=== PATIENT | female | born 1935 | race Caucasian/White ===

== ENCOUNTER → 2017-08-14 | Outpatient (CLI) | payer OTHER ==
[~2017-08-14] MED LIST: AMBIEN5 MG PO; COUMADIN3 MG PO; FUROSEMIDE20 MG PO; GABAPENTIN400 MG PO; PROCHLORPERAZIN10 MG PO; TYLENOL WITH C1 EACH PO; ULTRAM 50MG50 MG PO; WARFARIN SODIUM2 MG PO; ZESTRIL10 MG PO
[2017-08-14 18:57] LABS: PROTHROMBIN TIME 13.7 seconds (11.9-14.5)
== END ==
LOC: NPA 11:30
PROVIDERS: ATTEND Internal Medicine
DX: Z02.89 Encounter for other administrative examinations (principal)
CPT/HCPCS: 36415; 85610

== ENCOUNTER → 2017-08-18 | Outpatient (CLI) | payer OTHER ==
[2017-08-18 15:49] LABS: INR 1.15; PROTHROMBIN TIME 15.3 seconds (11.9-14.5)
== END ==
LOC: NPA 10:00
PROVIDERS: ATTEND Internal Medicine
DX: Z02.89 Encounter for other administrative examinations (principal)
CPT/HCPCS: 36415; 85610

== ENCOUNTER → 2017-08-20 | Outpatient (CLI) | payer OTHER | LOC: NPA 12:00 | PROVIDERS: ATTEND Internal Medicine | DX: Z02.89 Encounter for other administrative examinations (principal) | CPT/HCPCS: 36415 ==

== ENCOUNTER → 2017-08-25 | Outpatient (CLI) | payer OTHER ==
[2017-08-25 15:53] LABS: INR 1.11; PROTHROMBIN TIME 14.9 seconds (11.9-14.5)
== END ==
LOC: NPA 11:30
PROVIDERS: ATTEND Internal Medicine
DX: Z02.9 Encounter for administrative examinations, unspecified (principal)
CPT/HCPCS: 36415; 85610

== ENCOUNTER → 2017-08-31 | Outpatient (CLI) | payer OTHER ==
[2017-08-31 17:45] LABS: INR 1.45; PROTHROMBIN TIME 18.4 seconds (11.9-14.5)
== END ==
LOC: NPA 11:30
PROVIDERS: ATTEND Internal Medicine
DX: Z02.89 Encounter for other administrative examinations (principal)
CPT/HCPCS: 36415; 85610

== ENCOUNTER 2020-06-19 16:26 | Emergency (ER) | payer MEDICARE ==
[~2020-06-19] VITALS: Ht 172.7 cm; Wt 71.7 kg
[2020-06-19 17:07] LABS: BASOPHILS % 0.3 % (0.0-1.0); EOSINOPHILS # (AUTO) 0.1 (0.0-0.4); EOSINOPHILS % 1.2 % (0.0-6.0); HEMATOCRIT 41.4 % (34.2-44.1); HEMOGLOBIN 13.5 g/dL (12.0-16.0); LYMPHOCYTES # (AUTO) 1.7 (1.0-3.2); LYMPHOCYTES % 18.6 % (18.0-39.1); MEAN CORPUSCULAR HEMOGLOBIN 29.5 pg (28-32); MEAN CORPUSCULAR HGB CONC 32.6 g/dL (31-35); MEAN CORPUSCULAR VOLUME 90.4 fL (81-99); MONOCYTES # (AUTO) 0.6 (0.2-0.8); MONOCYTES % 6.8 % (4.4-11.3); NEUTROPHILS # (AUTO) 6.6 (2.1-6.9); NEUTROPHILS % 72.7 % (38.7-80.0); PLATELET COUNT 255 x10e3/uL (140-360); RED BLOOD COUNT 4.58 x10e6/uL (3.6-5.1); RED CELL DISTRIBUTION WIDTH 14.1 % (11.7-14.4)
[2020-06-19 17:19] LABS: PARTIAL THROMBOPLASTIN TIME 71.3 seconds (23.8-35.5)
[2020-06-19 17:21] LABS: INR 10.66; PROTHROMBIN TIME 88.3 seconds (11.9-14.5)
[2020-06-19 17:27] LABS: ALANINE AMINOTRANSFERASE 20 IU/L (0-55); ALBUMIN 3.4 g/dL (3.5-5.0); ALBUMIN/GLOBULIN RATIO 0.8 (0.8-2.0); ALKALINE PHOSPHATASE 107 IU/L (40-150); ANION GAP 15.3 mmol/L (8-16); BLOOD UREA NITROGEN 20 mg/dL (7-26); BUN/CREATININE RATIO 24 (6-25); CALCIUM 8.3 mg/dL (8.4-10.2); CARBON DIOXIDE 31 mmol/L (22-29); CHLORIDE 98 mmol/L (98-107); CREATINE KINASE 38 IU/L (29-168); CREATININE, SERUM 0.83 mg/dL (0.57-1.11); EST GLOMERULAR FILTRATION RATE > 60 ML/MIN (60-); GLUCOSE 110 mg/dL (74-118); POTASSIUM 3.3 mmol/L (3.5-5.1); SODIUM 141 mmol/L (136-145)
--- OUTSIDE RECORDS SUMMARY | 2020-06-19 17:49 | XMS REPORT | Continuity of Care Document ---
Author Author [facility] t Organization [facility] Address [address] [place] [address] Phone Unavailable Care Team Providers Care Optimization Engineer Name Role Phone Unavailable Unavailable Payers Payer Name Policy Type Policy Number Effective Date Expiration Date S ource Problems This patient has no known problems. Allergies, Adverse Reactions, Alerts Allergy Name Allergy Type Status Severity Reaction(s) Onset Date Inacti ve Date Treating Clinician Comments Source Penicillins DA Active MO 2020-06-05 00:00:00 [facility] Penicillins DA Active MO 2012-09-20 00:00:00 [facility] Medications This patient has no known medications. Procedures This patient has no known procedures. Results Test Description Test Time Test Comments Results Result Comments Source PROTHROMBIN TIME 2020-06-05 18:53:00 Test Item PROTHROMBIN TIME PATIENT (test code = PTP) 31.1 seconds 9.0-14.0 H INTERNATIONAL NORMAL RATIO (test code = INR) 2.7 0.8-1.2 H The therapeutic range for oral anticoagulant therapy formost indications is an international normalized ratio (INR)of between 2.0 and 3.0. The recommended therapeutic INRrange for various clinical situations is listed below: Clinical Situation INR range Pulmonary e mbolism treatment (2.0-3.0)Venous thrombosis treatmentVenous thrombosis prophylaxis (high risk surgery)Prevention of systemic embolism from: Acute myocardial infarction Valvular heart disease Atrial fibrillation Mechanical prosthetic heart valves (2.5-3.5) IS PATIENT ON ANTICOAGULANTS? NTHROMBOPLASTIN TIME [id number] 18:53:00* Test Item Value Reference Range Interpretation Comments THROMBOPLASTIN TIME PARTIAL (test code = PTT) 47.4 seconds 23.0-37. 0 H IS PATIENT ON ANTICOAGULANTS? NB-TYPE NATRIURETIC [id number] 16:40:00* Test Item Value Reference Range Interpretation Comments B-TYPE NATRIURETIC PEPTIDE (test code = BNP) 72.85 pgram/mL 0-100 N BASIC METABOLIC [id number] 16:17:00* Test Item Value Reference Range Interpretation Comments SODIUM (test code = NA) 142 mmol/L 136-145 N POTASSIUM (test code = K) 3.3 mmol/L 3.5-5.1 L CHLORIDE (test code = CL) 105.0 mmol/L 98-107 N CARBON DIOXIDE (test code = CO2) 29.0 mmol/L 21-32 N ANION GAP (test code = GAP) 11.3 10-20 N GLUCOSE (test code = GLU) 126 mg/dL 74-106 H BLOOD UREA NITROGEN (test code = BUN) 15 mg/dL 7-18 N GLOMERULAR FILTRATION RATE (test code = GFR) 47 mL/min >=60 Estimated GFR by using Modified MDRD formula.Chronic kidney disease is defined as either kidney damageor GFR <60 mL/min/1.73 m2 for >3 months. CREATININE (test code = CREAT) 1.10 mg/dL 0.55-1.02 H Note change in reference range due to change in reagent. BUN/CREATININE RATIO (test code = BUN/CREA) 13.6 10-20 N CALCIUM (test code = CA) 8.7 mg/dL 8.5-10.1 N [id number] 16:17:00* Test Item Value Reference Range Interpretation Comments TROPONIN-I (test code = TROPI) <0.015 ng/mL 0-0.045 N BASIC METABOLIC [id number] 16:09:00* Test Item Value Reference Range Interpretation Comments SODIUM (test code = NA) 142 mmol/L 136-145 N POTASSIUM (test code = K) 3.3 mmol/L 3.5-5.1 L CHLORIDE (test code = CL) 105.0 mmol/L 98-107 N CARBON DIOXIDE (test code = CO2) mmol/L 21-32 ANION GAP (test code = GAP) 10-20 GLUCOSE (test code = GLU) mg/dL 74-106 BLOOD UREA NITROGEN (test code = BUN) mg/dL 7-18 GLOMERULAR FILTRATION RATE (test code = GFR) mL/min >=60 CREATININE (test code = CREAT) mg/dL 0.55-1.02 BUN/CREATININE RATIO (test code = BUN/CREA) 10-20 CALCIUM (test code = CA) mg/dL 8.5-10.1 [id number] 16:09:00* Test Item Value Reference Range Interpretation Comments TROPONIN-I (test code = TROPI) ng/mL 0-0.045 - CT C-SPINE W/O [id number] 16:01:00 [facility] 1935 Sex: F Name: THANG KAPLAN [facility] : 1935 Age/S: 85 / F [address] [facility] Unit #: [id number] Loc: [place] [address] Phys: Latrell Flores DO Acct: [id number] Dis Date: Status: REG ER PHONE #: [phone] Exam Date: 06/05/2020 [facility] FAX #: [phone] Reason: FALL EXAMS: CPT CODE: [id number] CT C-SPINE W/O CONTRAST [id number] REASON FOR EXAM: FALL EXAM ORDER DATE: 06/05/2020 2:51 PM Ordering: Latrell Flores DO Attending:Latrell Flores DO [facility] C-SPINE W/O CONTRAST FINDINGS: CT images of the ce rvical spine were obtained without IV contrast at 2.5mm. Reconstructed cor onal and sagittal images were also provided. Dose modulation, iterative r econstruction, and/or weight based adjustment of the MA/KV was utilized to reduce the radiation dose to as low as reasonably achievable. The osseous structures are intact. Mild sclerosis of the facet joints at multiple level The central canal is patent. The disc spaces are maintained. IMPRESSION: Degenerative changes of the facet joints at multiple level. No acute osseous abnormality at 1601 Reported and signed by: Edwin Woods M.D. CC: Yvan Hernandez; Latrell Casillas DO Technologist:Yessica WALTER(R); [employer] Chance CTDI: DLP: Trnscb Date/Time: 06/05/2020 (1601) tSHRUTHI Orig Print D/T: S: 06/05/2020 () PAGE 1 Signed Report - CT HEAD/BRAIN W/O CONT 2020-06-05 15:59:00 [facility]Name: JOSE MANUEL KAPLAN : 1935 Sex: F Name: THANG KAPLAN [facility] : 1935 Age/S: 85 / F [address] Unit #: [id number] Loc: [place], [place] [address] Phys: Latrell Flores DO Acct: [id number] Dis Date: Status: REG ER PHONE #: [phone] Exam Date: 06/05/2020 1558 FAX #: [phone] Reason: FALL EXAMS: CPT CODE: [id number] CT HEAD/BRAIN W/O CONT [id number] REASON FOR EXAM: FALL EXAM ORDER DATE: 06/05/2020 2:51 PM Ordering: Latrell Flores DO Attending:Latrell Flores DO Location:[facility] PROCEDURE: - CT HEAD/BRAIN W/O CONT COMPARISON: 09/17/2012 FI NDINGS: CT images of the brain were obtained without IV contrast. Dose mo dulation, iterative reconstruction, and/or weight based adjustment of the MA/KV was utilized to reduce the radiation dose to as low as reasonably ac hievable. Mild patchy low densities appearance of the paraventric ular region noted consistent with nonspecific white matter disease. The gr ay-white matter delineation is unremarkable. The ventricles, cisterns, and sulci are minimally prominent. There is no evidence of hemorrhage, mass, mass effect. There is no evidence of acute infarct. The calvarium i s intact. 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 No acute findings at 1559 Reported and signed by: Edwin lafleur M.D. CC: Yvan Hernandez Ernesto M DO Ashley hnologist:Yessica WALTER(R); [employer] Chance CTDI: DLP: Trnscb Date/T jennifer: 06/05/2020 (2920) tSHRUTHI Orig Print D/T: S: 06/05 (4488) PAGE 1 Signed Report CBC W/O [id number] 15:46:00* Test Item Value Reference Range Interpretation Comments WHITE BLOOD CELL (test code = WBC) 5.3 K/mm3 4.5-12.5 N RED BLOOD CELL (test code = RBC) 4.41 mill/mm3 3.7-5.2 N HEMOGLOBIN (test code = HGB) 13.6 gram/dL 11.5-15.5 N HEMATOCRIT (test code = HCT) 41.4 % 36.0-46.0 N MEAN CELL VOLUME (test code = MCV) 93.9 fL 80-98 N MEAN CELL HGB (test code = MCH) 30.8 picogram 27.0-33.0 N MEAN CELL HGB CONCETRATION (test code = MCHC) 32.9 gram/dL 33.0-36. 0 L RED CELL DISTRIBUTION WIDTH (test code = RDW) 14.4 % 11.6-16. 2 N PLATELET COUNT (test code = PLT) 113 K/mm3 150-450 L MEAN PLATELET VOLUME (test code = MPV) 12.9 fL 6.7-11.0 H
--- NOTE | 2020-06-19 18:02 | Diagnostic Imaging Report ---
Examination: CT of the brain without contrast History: 85-year-old female with fall, unsteady gait, weakness Comparison studies: Report of MRI brain from 12/23/2016, prior images are not available for comparison at the time of interpretation. Technique: Axial images were obtained from the skull base to the vertex. Coronal and sagittal reconstructions obtained from the axial data. Dose modulation, iterative reconstruction, and/or weight based adjustment of the mA/kV was utilized to reduce the radiation dose to as low as reasonably achievable. Intravenous contrast: None Findings: Scalp/skull: No abnormalities. No fractures, blastic or lytic lesions. Extra-axial spaces: No masses. No fluid collections. Atherosclerotic calcifications in the basilar artery as well as cavernous carotid and vertebral arteries bilaterally. Brain sulci: Mildly prominent. Ventricles: Mild compensatory dilatation. Incidental bilateral atrial choroid plexus xanthogranulomas are moderate in size. No hydrocephalus. Parenchyma: Patchy hypodensities in the supratentorial white matter are small vessel ischemic changes. Prominent perivascular spaces or chronic appearing bilateral basal ganglia lacunar infarcts are present, specifically in the right inferior putamen, genu of the internal capsules bilaterally, and left yip radiata. Otherwise no abnormal densities. No masses, hemorrhage, or acute cortical vascular insults. Sellar/suprasellar region: Partial empty sella is present. No suprasellar mass. Craniocervical junction: Patent foramen magnum. No Chiari one malformation. IMPRESSION: 1. No acute intracranial abnormalities. 2. Moderate chronic supratentorial microvascular ischemic changes. Chronic appearing bilateral basal ganglia prominent perivascular spaces or lacunar infarcts. 3. Mild generalized parenchymal volume loss. A preliminary report was provided by Dr. Quesada on 06/19/2020 at 6:02 PM. I have reviewed the images and agree with findings in the preliminary report. Signed by: Dr. Socorro Calvo M.D. on 06/19/2020 8:05 PM
[2020-06-19] MEDS ORDERED: ATORVASTATIN CA20 MG PO (18:03)
[2020-06-19] MEDS ORDERED: ALPRAZOLAM0.5 MG PO (18:03)
[2020-06-19] MEDS ORDERED: LISINOPRIL5 MG PO (18:03)
[2020-06-19] MEDS ORDERED: WARFARIN SODIUM3 MG PO (18:03)
[2020-06-19] MEDS ORDERED: GABAPENTIN300 MG PO (18:03)
[2020-06-19 18:04] LABS: CLARITY,URINE SL CLOUDY (CLEAR); COLOR,URINE STRAW (YELLOW); LEUKOCYTE ESTERASE ,URINE NEGATIVE (NEGATIVE); NITRITE,URINE NEGATIVE (NEGATIVE); PROTEIN,URINE DIPSTICK NEGATIVE (NEGATIVE)
[2020-06-19 18:05] LABS: BILIRUBIN,URINE NEGATIVE (NEGATIVE); KETONES,URINE NEGATIVE (NEGATIVE); URINE UROBILINOGEN 0.2 mg/dL (0.2 - 1)
[2020-06-19 18:08] LABS: AMPHETAMINES SCREEN,URINE NEGATIVE (NEGATIVE); BENZODIAZEPINES SCREEN,URINE POSITIVE (NEGATIVE); PHENCYCLIDINE SCREEN,URINE NEGATIVE (NEGATIVE)
[2020-06-19 18:17] LABS: BACTERIA,URINE FEW /HPF
[2020-06-19 18:18] LABS: AMORPHOUS SEDIMENT,URINE FEW (FEW); EPITHELIAL CELLS,URINE FEW /LPF; RENAL EPITHELIAL CELLS,URINE RARE
--- NOTE | 2020-06-19 18:33 | Diagnostic Imaging Report ---
EXAMINATION: CHEST SINGLE (PORTABLE) INDICATION: Weakness COMPARISON: None FINDINGS: AP view TUBES and LINES: None. . LUNGS/PLEURA: Lungs are well inflated. There are bilateral patchy peripheral opacities could represent multifocal/viral pneumonia. Other considerations include pulmonary edema.. There is no pleural effusion or pneumothorax. HEART AND MEDIASTINUM: The cardiomediastinal silhouette is unremarkable. BONES AND SOFT TISSUES: No acute osseous lesion. Soft tissues are unremarkable. UPPER ABDOMEN: No free air under the diaphragm. IMPRESSION: Bilateral patchy peripheral opacities could represent multifocal/viral pneumonia. Other considerations include pulmonary edema. Signed by: Jose M Henley MD on 06/19/2020 6:30 PM
[2020-06-19] MEDS ORDERED: AZITHROMYCIN 500MG/NS 250 ML 250 ML IV ONE (19:15)
[2020-06-19] MEDS ORDERED: CEFTRIAXONE SOD 1 GM/NS 50 ML 50 ML IV ONE (19:15)
--- NOTE | 2020-06-19 19:19 | NUR ---
Bedside shift report and care hand off given to WAQAR Wagner.
--- NOTE | 2020-06-19 19:20 | Emergency Department Note ---
History of Present Illnes History of Present Illness Chief Complaint: General Medicine Complaints History of Present Illness This is a 85 year old female Patient in from home via EMS with reports of changes in mental status and function since a fall that happened a week ago. Per EMS, the patient was taken to [place] after that fall, was assessed in the ER and discharged home. The patient's daughter believes that the patient has not been the same since the fall. Per EMS report, the patient was noted to have some blood around her mouth and the patient states that she has been coughing up blood for the past couple of days. No obvious source of the bleeding is identified upon brief visual inspection of the inside of her mouth. Patient complaints of pain in her head and her buttock but the pain in her buttock is fr om a fall that happened many years ago and is not new. Patient appears tired. 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 Any updates have been documented here. (DYLAN VILCHIS MD) Past Medical History Recent Fever: No Clinical Suspicion of Infectio: No New/Unexplained Change in Ment: Yes Past Medical History: Hypertension, Hyperlipedemia, DVT/PE Other Medical History: LEFT LEG BLOOD CLOT PREVIOUS FALLS Other Surgery: RIGHT HIP REPLACEMENT LEFT KNEE REPLACEMENT LEFT LEG FILTER (DYLAN VILCHIS MD) Social History Smoking Cessation: Never Smoker Counseling Performed: No Alcohol Use: None Any Illegal Drug Use: No TB Exposure/Symptoms: No Physically hurt or threatened: No (DYLAN VILCHIS MD) Family History Family history of heart diseas: No (DYLAN VILCHIS MD) Other Last Tetanus: UNKNOWN Any Pre-Existing Lines (PICC,: No (DYLAN VILCHIS MD) Review of Systems Review of Systems Constitutional: Reports no symptoms EENTM: Reports no symptoms Cardiovascular: Reports no symptoms Respiratory: Reports no symptoms Gastrointestinal: Reports no symptoms Genitourinary: Reports no symptoms Musculoskeletal: Reports back pain (CHRONIC LOW BACK/BUTTOCKS) Integumentary: Reports no symptoms Neurological: Reports headache, Reports other (AMS) Psychological: Reports no symptoms Endocrine: Reports no symptoms Hematological/Lymphatic: Reports no symptoms (DYLAN VILCHIS MD) Physical Exam Related Data Allergies: Coded Allergies: penicillin (Verified Allergy, Unknown, PASSED OUT, 12/21/16) Triage Vital Signs Vital Signs Date Time Temp Pulse Resp B/P (MAP) Pulse Ox O2 Delivery O2 Flow Rate FiO2 06/19/20 16:29 98.4 71 16 117/79 98 Room Air Vital signs reviewed: Yes (DYLAN VILCHIS MD) Physical Exam CONSTITUTIONAL Constitutional: Present well-developed, Present well-nourished HENT HENT: Present normocephalic, Present atraumatic, Present oropharynx clear/moist, Present nose normal, Present other (ECCHYMOSIS AND HEMATOMA WITH TTP LEFT FOREHEAD) HENT L/R: Present left ext ear normal, Present right ext ear normal EYES Eyes: Reports PERRL, Reports conjunctivae normal NECK Neck: Present ROM normal PULMONARY Pulmonary: Present effort normal, Present breath sounds normal CARDIOVASCULAR Cardiovascular: Present regular rhythm (FREQUENT ECTOPY), Present heart sounds normal, Present capillary refill normal, Present normal rate GASTROINTESTINAL Abdominal: Present soft, Present nontender, Present bowel sounds normal GENITOURINARY Genitourinary: Present exam deferred SKIN Skin: Present warm, Present dry MUSCULOSKELETAL Musculoskeletal: Present ROM normal, Present other (PELVIS STABLE) NEUROLOGICAL Neurological: Present alert, Present oriented x 3, Present no gross motor or sensory deficits PSYCHOLOGICAL Psychological: Present mood/affect normal, Present judgement normal ([facility] Burgess MD) Results Laboratory Result Diagram: 06/19/20 1647 06/19/20 1647 Laboratory Laboratory Tests Test 06/19/20 17:48 06/19/20 16:47 Urine Color Straw (YELLOW) Urine Clarity Sl cloudy (CLEAR) Urine pH 6.5 (5 - 7) Urine Specific Protection 1.020 (1.010-1.025) Urine Protein Negative (NEGATIVE) Urine Glucose (UA) Negative (NEGATIVE) Urine Ketones Negative (NEGATIVE) Urine Blood Negative (NEGATIVE) Urine Nitrite Negative (NEGATIVE) Urine Bilirubin Negative (NEGATIVE) Urine Urobilinogen 0.2 mg/dL (0.2 - 1) Urine Leukocyte Esterase Negative (NEGATIVE) Urine RBC None /HPF (0-5) Urine WBC None /HPF (0-5) Urine Epithelial Cells Few /LPF (NONE) Urine Renal Epithelial Cells Rare (NONE) Urine Amorphous Sediment Few (FEW) Urine Bacteria Few /HPF (NONE) Urine Opiates Screen Negative (NEGATIVE) Urine Methadone Screen Negative (NEGATIVE) Urine Barbiturates Screen Negative (NEGATIVE) Urine Phencyclidine Screen Negative (NEGATIVE) Urine Amphetamines Screen Negative (NEGATIVE) Urine Methamphetamines Screen Negative (NEGATIVE) Urine Benzodiazepines Screen Positive (NEGATIVE) Urine Cocaine Screen Negative (NEGATIVE) Urine Cannabinoids Screen Negative (NEGATIVE) White Blood Count 9.03 x10e3/uL (4.8-10.8) Red Blood Count 4.58 x10e6/uL (3.6-5.1) Hemoglobin 13.5 g/dL (12.0-16.0) Hematocrit 41.4 % (34.2-44.1) Mean Corpuscular Volume 90.4 fL (81-99) Mean Corpuscular Hemoglobin 29.5 pg (28-32) Mean Corpuscular Hemoglobin Concent 32.6 g/dL (31-35) Red Cell Distribution Width 14.1 % (11.7-14.4) Platelet Count 255 x10e3/uL (140-360) Neutrophils (%) (Auto) 72.7 % (38.7-80.0) Lymphocytes (%) (Auto) 18.6 % (18.0-39.1) Monocytes (%) (Auto) 6.8 % (4.4-11.3) Eosinophils (%) (Auto) 1.2 % (0.0-6.0) Basophils (%) (Auto) 0.3 % (0.0-1.0) Neutrophils # (Auto) 6.6 (2.1-6.9) Lymphocytes # (Auto) 1.7 (1.0-3.2) Monocytes # (Auto) 0.6 (0.2-0.8) Eosinophils # (Auto) 0.1 (0.0-0.4) Basophils # (Auto) 0.0 (0.0-0.1) Absolute Immature Granulocyte (auto 0.04 x10e3/uL (0-0.1) Prothrombin Time 88.3 seconds (11.9-14.5) Prothromb Time International Ratio 10.66 Activated Partial Thromboplast Time 71.3 seconds (23.8-35.5) Sodium Level 141 mmol/L (136-145) Potassium Level 3.3 mmol/L (3.5-5.1) Chloride Level 98 mmol/L (98-107) Carbon Dioxide Level 31 mmol/L (22-29) Anion Gap 15.3 mmol/L (8-16) Blood Urea Nitrogen 20 mg/dL (7-26) Creatinine 0.83 mg/dL (0.57-1.11) Estimat Glomerular Filtration Rate > 60 ML/MIN (60-) BUN/Creatinine Ratio 24 (6-25) Glucose Level 110 mg/dL (74-118) Calcium Level 8.3 mg/dL (8.4-10.2) Total Bilirubin 1.5 mg/dL (0.2-1.2) Aspartate Amino Transf (AST/SGOT) 31 IU/L (5-34) Alanine Aminotransferase (ALT/SGPT) 20 IU/L (0-55) Alkaline Phosphatase 107 IU/L (40-150) Creatine Kinase 38 IU/L (29-168) Creatine Kinase MB 1.20 ng/mL (0-5.0) Troponin I 0.016 ng/mL (0-0.300) B-Type Natriuretic Peptide 58.3 pg/mL (0-100) Total Protein 7.5 g/dL (6.5-8.1) Albumin 3.4 g/dL (3.5-5.0) Globulin 4.1 g/dL (2.3-3.5) Albumin/Globulin Ratio 0.8 (0.8-2.0) Lab results reviewed: Yes (DYLAN VILCHIS MD) Imaging Imaging results reviewed: Yes Impressions Examination: CT of the brain without contrast History: 85-year-old female with fall, unsteady gait, weakness Comparison studies: None Technique: Axial images were obtained from the skull base to the vertex. Coronal and sagittal reconstructions obtained from the axial data. Dose modulation, iterative reconstruction, and/or weight based adjustment of the mA/kV was utilized to reduce the radiation dose to as low as reasonably achievable. Intravenous contrast: None Findings: Scalp/skull: No abnormalities. No fractures, blastic or lytic lesions. Extra-axial spaces: No masses. No fluid collections. Atherosclerotic calcifications in the basilar artery as well as cavernous carotid and vertebral arteries bilaterally. Brain sulci: Mildly prominent. Ventricles: Mild compensatory dilatation. Incidental bilateral atrial choroid plexus xanthogranulomas are moderate in size. No hydrocephalus. Parenchyma: Patchy hypodensities in the supratentorial white matter are small vessel ischemic changes. Prominent perivascular spaces or chronic appearing bilateral basal ganglia lacunar infarcts are present, specifically in the right inferior putamen, genu of the internal capsules bilaterally, and left yip radiata. Otherwise no abnormal densities. No masses, hemorrhage, or acute cortical vascular insults. Sellar/suprasellar region: Partial empty sella is present. No suprasellar mass. Craniocervical junction: Patent foramen magnum. No Chiari one malformation. IMPRESSION: 1. No acute intracranial abnormalities. 2. Moderate chronic supratentorial microvascular ischemic changes. Chronic appearing bilateral basal ganglia prominent perivascular spaces or lacunar infarcts. 3. Mild generalized parenchymal volume loss. A preliminary report was provided by Dr. Quesada on 06/19/2020 at 6:02 PM. EXAMINATION: CHEST SINGLE (PORTABLE) INDICATION: Weakness COMPARISON: None FINDINGS: AP view TUBES and LINES: None. . LUNGS/PLEURA: Lungs are well inflated. There are bilateral patchy peripheral opacities could represent multifocal/viral pneumonia. Other considerations include pulmonary edema.. There is no pleural effusion or pneumothorax. HEART AND MEDIASTINUM: The cardiomediastinal silhouette is unremarkable. BONES AND SOFT TISSUES: No acute osseous lesion. Soft tissues are unremarkable. UPPER ABDOMEN: No free air under the diaphragm. IMPRESSION: Bilateral patchy peripheral opacities could represent multifocal/viral pneumonia. Other considerations include pulmonary edema. Signed by: Jose M Henley MD on 06/19/2020 6:30 PM (DYLAN VILCHIS MD) Procedures 12 Lead ECG Interpretation ECG Interpretation : ECG: ECG 1 Underwater Welder: Interpreted by ED physician Date: Jun 19, 2020 Time: 16:46 Rhythm: sinus rhythm Ectopy: infrequent PVC's (AND PAC'S) Rate: normal BPM: 74 QRS axis: left Conduction: LAFB Other findings: LVH Clinical Impression: abnormal ECG Additional Comments POOR RWP (DYLAN VILCHIS MD) Assessment & Plan Medical Decision Making [facility] AMS, FALL ON COUMADIN - CBC, CHEM, PT/PTT, CT BRAIN/C-SPINE, UA/CX, CXR - EVAL FOR CEREBRAL BLEED, CERV SP FX, ANEMIA, RENAL INSUFF, UTI (DYLAN VILCHIS MD) [facility] [address] victoria at [facility] and he accepts pt for transfer (LILA JONES MD) Reassessment Reassessment I SPOKE WITH PT'S DAUGHTER - PT HAS HAD COUGH SINCE FALL AND ALSO HAS HAD DECR ORAL INTAKE DUE TO LOSS OF TASTE - CXR WITH BILAT PATCHY OPACITIES - WILL GET RAPID COVID SWAB, GIVE ROCEPHIN/AZITHRO. I SPOKE WITH DR HATCH (PCP) - WILL ADMIT HERE IF COVID NEG, WILL NEED XFER SINCE NO COVID BEDS AVAIL HERE - REPORT TO DR JONES TO F/U AND FINAL DISPO. I ORDERED TRANSFUSION OF [facility] FOR COAGULOPATHY (DYLAN VILCHIS MD) Assessment & Plan Final Impression: (1) Warfarin-induced coagulopathy (2) Fall (3) Altered mental status (4) Pneumonia (5) Suspected 2019 novel coronavirus infection (DYLAN VILCHIS MD) Depart Disposition: TRANS TO OTHER [facility] Last Vital Signs Date Time Temp Pulse Resp B/P (MAP) Pulse Ox O2 Delivery O2 Flow Rate FiO2 06/19/20 18:16 62 18 132/73 99 Room Air 06/19/20 16:29 98.4 (DYLAN VILCHIS MD) Home Meds Reported Medications Warfarin Sodium (WARFARIN SODIUM) 3 Mg Tablet, 3 MG PO UD Take one tablet every other day 06/19/20 Alprazolam (ALPRAZOLAM) 0.5 Mg Tablet, 0.5 MG PO DAILY 06/19/20 Atorvastatin Calcium (ATORVASTATIN CALCIUM) 20 Mg Tablet, 20 MG PO DAILY 06/19/20 Gabapentin (GABAPENTIN) 300 Mg Capsule, 300 MG PO QID 06/19/20 Lisinopril (LISINOPRIL) 5 Mg Tablet, 5 MG PO BID 06/19/20 Tramadol Hcl* (ULTRAM 50MG*) 50 Mg Tab, 50 MG PO TID PRN for Mild Pain (1-3) or Fever>100.8 04/19/13 Discontinued Reported Medications Gabapentin (GABAPENTIN) 400 Mg Capsule, 400 MG PO TID, #30 CAP 12/21/16 Acetaminophen With Codeine (TYLENOL WITH CODEINE #3 TABLET) 1 Each Tablet, 300 MG PO Q4HR PRN for PAIN, TAB 12/21/16 Lisinopril* (ZESTRIL*) 10 Mg Tablet, 10 MG PO HS 04/19/13 DYLAN VILCHIS MD Jun 19, 2020 19:20 LILA JONES MD Jun 19, 2020 21:59
--- NOTE | 2020-06-19 20:42 | NUR ---
TRANSFER INITIATED TO [facility]; SPOKE TO JUWAN HOFFMANN RN AT TRANSFER CENTER
[2020-06-19] MEDS ORDERED: SODIUM CHLORIDE 0.9% 250ML 250 ML ONE (20:45)
[2020-06-19] MEDS ORDERED: SODIUM CHLORIDE 0.9% 100 ML ONE (21:28)
--- NOTE | 2020-06-20 00:10 | NUR ---
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 DAUGHTER WAS ALSO GIVEN PHONE NUMBER AT THIS TIME.
[2020-06-20 00:21] VITALS: BP 155/66
== END 2020-06-20 00:25 | disposition other institution (70) ==
LOC: ER 16:46
DX: U07.1 COVID-19 (principal); J18.9 Pneumonia, unspecified organism; D68.32 Hemorrhagic disorder due to extrinsic circulating anticoagulants; T45.515A Adverse effect of anticoagulants, initial encounter; R41.82 Altered mental status, unspecified; R94.31 Abnormal electrocardiogram [ECG] [EKG]; I10 Essential (primary) hypertension; E78.5 Hyperlipidemia, unspecified; Z86.718 Personal history of other venous thrombosis and embolism
CPT/HCPCS: 36415; 70450; 71045; 80053; 80307; 81001; 82550; 82553; 83880; 84484; 85025; 85610; 85730; 86850; 86900; 87040; 93005; 99285; J0456; J0696; J7050 ×2; P9017; U0002

== ENCOUNTER 2025-02-11 19:21 | Inpatient (IN) | payer MEDICARE ==
[~2025-02-11] VITALS: Ht 172.7 cm; Wt 71.7 kg
[~2025-02-11 19:21] MED LIST changes: +ALPRAZOLAM0.5 MG PO; +ATORVASTATIN CA20 MG PO; +GABAPENTIN300 MG PO; +LISINOPRIL5 MG PO; +WARFARIN SODIUM3 MG PO
[2025-02-11 19:30] VITALS: TEMP 98.9
[2025-02-11 22:36] LABS: BASOPHILS % 0.5 % (0.0-1.0); EOSINOPHILS % 1.4 % (0.0-6.0); LYMPHOCYTES % 11.5 % (18.0-39.1); MONOCYTES % 5.1 % (4.4-11.3); NEUTROPHILS % 81.0 % (38.7-80.0); RED CELL DISTRIBUTION WIDTH 14.6 % (11.7-14.4)
[2025-02-11 22:42] LABS: INR 1.53
[2025-02-11 22:51] LABS: EST GLOMERULAR FILTRATION RATE 82.0 ML/MIN (>=60)
[2025-02-11 23:06] VITALS: PULSE 85; RESP 16; O2SAT 98
[2025-02-11 23:30] VITALS: RESP 23
[2025-02-12] VITALS (13 sets, daily range): BP systolic 102–127; BP diastolic 59–88; PULSE 78–113; RESP 16–22; TEMP 97.3–98.2; O2SAT 94–100
[2025-02-12] MEDS: HEPARIN SOD/DEXTROSE 5% 25000 UNIT/250 ML BAG IV SCH (00:01)
[2025-02-12] MEDS: Doxycycline IV 100 MG in SODIUM CHLORIDE 0.9% 100 ML IV STA (01:19)
[2025-02-12 05:53] LABS: BASOPHILS % 0.5 % (0.0-1.0); EOSINOPHILS % 4.5 % (0.0-6.0); LYMPHOCYTES % 18.7 % (18.0-39.1); MONOCYTES % 8.4 % (4.4-11.3); NEUTROPHILS % 67.6 % (38.7-80.0); RED CELL DISTRIBUTION WIDTH 14.8 % (11.7-14.4)
[2025-02-12] MEDS ORDERED: HEPARIN SOD/DEXTROSE 5% 25000 UNIT/250 ML BAG IV SCH (09:00)
[2025-02-12] MEDS: HEPARIN 25,000 UNIT/D5W 250ML 250 ML IV SCH ×2 (12:18→17:20)
[2025-02-12] MEDS: LISINOPRIL 2.5 MG TAB PO SCH (17:12)
[2025-02-12] MEDS: GABAPENTIN 300 MG CAP PO SCH (17:12)
[2025-02-12] MEDS ORDERED: IOPAMIDOL 370 MG/ML 100 ML INFUS..BTL INJ ONE (17:21)
[2025-02-12] MEDS ORDERED: SODIUM CHLORIDE 0.9% 100 ML ONE (17:21)
[2025-02-12] MEDS: TRAMADOL HCL 50 MG TAB PO PRN (23:13)
[2025-02-13] VITALS (8 sets, daily range): BP systolic 94–122; BP diastolic 56–87; PULSE 51–91; RESP 16–20; TEMP 97.5–98.4; O2SAT 94–100
[2025-02-13] MEDS: HEPARIN 25,000 UNIT/D5W 250ML 250 ML IV SCH (07:17)
[2025-02-13] MEDS: ALPRAZOLAM 0.5 MG TAB PO SCH (09:00)
[2025-02-13 09:30] LABS: BASOPHILS % 0.6 % (0.0-1.0); EOSINOPHILS % 8.4 % (0.0-6.0); LYMPHOCYTES % 18.7 % (18.0-39.1); MONOCYTES % 8.4 % (4.4-11.3); NEUTROPHILS % 63.7 % (38.7-80.0); RED CELL DISTRIBUTION WIDTH 14.7 % (11.7-14.4)
[2025-02-13] MEDS: ATORVASTATIN 20 MG TAB PO SCH (10:03)
[2025-02-13] MEDS: FUROSEMIDE INJ 10 MG/ML 4 ML VIAL IV SCH (18:06)
[2025-02-13] MEDS: HEPARIN SOD (PORCINE) 5,000 UNIT/ML VIAL SC SCH (22:42)
[2025-02-14] VITALS (7 sets, daily range): BP systolic 73–118; BP diastolic 49–90; PULSE 59–81; RESP 18–19; TEMP 97.5–97.9; O2SAT 95–100
[2025-02-14 07:01] LABS: BASOPHILS % 0.6 % (0.0-1.0); EOSINOPHILS % 8.1 % (0.0-6.0); LYMPHOCYTES % 19.2 % (18.0-39.1); MONOCYTES % 7.7 % (4.4-11.3); NEUTROPHILS % 64.1 % (38.7-80.0); RED CELL DISTRIBUTION WIDTH 14.6 % (11.7-14.4)
[2025-02-14 07:37] LABS: EST GLOMERULAR FILTRATION RATE 85.0 ML/MIN (>=60)
== END 2025-02-14 18:50 | DRG 307 ==
LOC: ER 19:27 → OBSVTOIN 22:07 → ERHOLD 22:07 → MED/SURG2 02-12 00:21
PROVIDERS: ADMIT Family Medicine; ATTEND Family Medicine
DX: I35.0 Nonrheumatic aortic (valve) stenosis (principal); I74.5 Embolism and thrombosis of iliac artery; I50.22 Chronic systolic (congestive) heart failure; L97.518 Non-pressure chronic ulcer of other part of right foot with other specified severity; I11.0 Hypertensive heart disease with heart failure; E78.5 Hyperlipidemia, unspecified; I48.91 Unspecified atrial fibrillation; I73.9 Peripheral vascular disease, unspecified; J44.9 Chronic obstructive pulmonary disease, unspecified; R53.81 Other malaise; F41.9 Anxiety disorder, unspecified; F03.90 Unspecified dementia, unspecified severity, without behavioral disturbance, psychotic disturbance, mood disturbance, and anxiety; Z79.01 Long term (current) use of anticoagulants; Z86.711 Personal history of pulmonary embolism; Z86.718 Personal history of other venous thrombosis and embolism; Z88.0 Allergy status to penicillin
CPT/HCPCS: 36415; 75635; 80048; 80053; 83880; 85025; 85610; 85730; 93306; 93925; 94799; 99252; 99284; J0696; J1644; J1938; J7050; Q9967

== ENCOUNTER 2025-03-31 11:35 | Inpatient (IN) | payer MEDICARE ==
[~2025-03-31] VITALS: Ht 172.7 cm; Wt 71.7 kg
[2025-03-31 11:36] VITALS: TEMP 98.7
[2025-03-31 12:22] LABS: BASOPHILS % 0.1 % (0.0-1.0); EOSINOPHILS % 0.0 % (0.0-6.0); LYMPHOCYTES % 8.3 % (18.0-39.1); MONOCYTES % 5.8 % (4.4-11.3); NEUTROPHILS % 85.4 % (38.7-80.0); RED CELL DISTRIBUTION WIDTH 16.1 % (11.7-14.4)
[2025-03-31 12:38] LABS: CORONAVIRUS COVID-19 AG NEGATIVE (NEGATIVE)
[2025-03-31] MEDS: SODIUM CHLORIDE 0.9% 1000ML 1,000 ML IV STA ×2 (12:41→12:47)
[2025-03-31 12:44] LABS: EST GLOMERULAR FILTRATION RATE 36.0 ML/MIN (>=60); INR 1.43
[2025-03-31] MEDS: MEROPENEM 1 GM in SODIUM CHLORIDE 0.9% 100 ML IV ONE (13:10)
[2025-03-31] MEDS: Vancomycin IV 1 GM in SODIUM CHLORIDE 0.9% 250ML 250 ML IV ONE (13:10)
[2025-03-31] MEDS: SODIUM CHLORIDE 0.9% 1000ML 1,000 ML IV SCH (13:49)
[2025-03-31 19:20] VITALS: PULSE 94; RESP 19
[2025-03-31 21:30] VITALS: BP 81/57; PULSE 89; RESP 22; TEMP 97.5; O2SAT 100
[2025-03-31] MEDS: MEROPENEM 1 GM in SODIUM CHLORIDE 0.9% 100 ML IV SCH (23:07)
[2025-03-31 23:46] VITALS: BP 81/57; PULSE 89; RESP 22; TEMP 97.5; O2SAT 100
[2025-04-01] VITALS (48 sets, daily range): BP systolic 66–106; BP diastolic 53–82; PULSE 75–128; RESP 15–34; TEMP 97.3–98.6; O2SAT 95–100
[2025-04-01 01:23] LABS: LEUKOCYTE ESTERASE ,URINE LARGE (NEGATIVE); PROTEIN,URINE DIPSTICK 2+ (NEGATIVE); URINE UROBILINOGEN 0.2 mg/dL (0.2 - 1)
[2025-04-01 01:36] LABS: EPITHELIAL CELLS,URINE FEW /LPF; WBC,URINE (MAN) 21-50 /HPF (0-5)
[2025-04-01 01:38] LABS: OTHER CRYSTALS,URINE PRESENT; TRIPLE PHOSPHATE CRYSTAL,UR FEW
[2025-04-01 06:52] LABS: BASOPHILS % 0.4 % (0.0-1.0); EOSINOPHILS % 0.0 % (0.0-6.0); LYMPHOCYTES % 15.4 % (18.0-39.1); MONOCYTES % 10.5 % (4.4-11.3); NEUTROPHILS % 73.1 % (38.7-80.0); RED CELL DISTRIBUTION WIDTH 16.2 % (11.7-14.4)
[2025-04-01 07:13] LABS: EST GLOMERULAR FILTRATION RATE 54.0 ML/MIN (>=60)
[2025-04-01] MEDS: NOREPINEPHRINE 8 MG/D5W 250 ML 250 ML IV SCH (09:45)
[2025-04-01] MEDS: DIGOXIN INJ 0.25 MG/ML 2 ML AMP IV ONE (10:51)
[2025-04-01] MEDS: SODIUM CHLORIDE 0.9% 1000ML 1,000 ML ONE (12:40)
[2025-04-02] VITALS (46 sets, daily range): BP systolic 77–116; BP diastolic 55–91; PULSE 65–159; RESP 12–35; TEMP 98.1–99.3; O2SAT 91–100
[2025-04-02 06:40] LABS: BASOPHILS % 0.2 % (0.0-1.0); EOSINOPHILS % 0.0 % (0.0-6.0); LYMPHOCYTES % 13.1 % (18.0-39.1); MONOCYTES % 9.1 % (4.4-11.3); NEUTROPHILS % 77.0 % (38.7-80.0); RED CELL DISTRIBUTION WIDTH 16.1 % (11.7-14.4)
[2025-04-02 06:54] LABS: EST GLOMERULAR FILTRATION RATE 75.0 ML/MIN (>=60)
[2025-04-02] MEDS: ATORVASTATIN 20 MG TAB PO SCH (08:11)
[2025-04-03] VITALS (27 sets, daily range): BP systolic 98–122; BP diastolic 72–95; PULSE 43–131; RESP 18–34; TEMP 97.9–98.3; O2SAT 94–100
[2025-04-03] MEDS: ACETAMINOPHEN 325 MG TAB PO PRN (15:20)
[2025-04-04] VITALS (25 sets, daily range): BP systolic 90–124; BP diastolic 71–101; PULSE 40–116; RESP 9–28; TEMP 97.5–98.4; O2SAT 95–100
[2025-04-05] VITALS (7 sets, daily range): BP systolic 101–114; BP diastolic 78–90; PULSE 77–107; RESP 17–20; TEMP 97.5–98.4; O2SAT 95–98
[2025-04-05] MEDS: SODIUM CHLORIDE 0.9% 250ML 250 ML ONE (16:19)
[2025-04-05] MEDS: TRAMADOL HCL 50 MG TAB PO PRN (17:14)
[2025-04-06 03:22] VITALS: BP 111/95; PULSE 92; RESP 18; TEMP 97.6; O2SAT 99
[2025-04-06 07:01] LABS: BASOPHILS % 0.3 % (0.0-1.0); EOSINOPHILS % 0.5 % (0.0-6.0); LYMPHOCYTES % 16.0 % (18.0-39.1); MONOCYTES % 5.7 % (4.4-11.3); NEUTROPHILS % 76.3 % (38.7-80.0); RED CELL DISTRIBUTION WIDTH 16.3 % (11.7-14.4)
[2025-04-06 07:21] LABS: EST GLOMERULAR FILTRATION RATE 89.0 ML/MIN (>=60)
[2025-04-06 09:00] VITALS: BP 111/95; PULSE 92; RESP 18; TEMP 97.6; O2SAT 99
[2025-04-06 09:48] LABS: BAND NEUTROPHILS % (MANUAL) 2 %; EOSINOPHILS % (MANUAL) 1 % (0-7); LYMPHOCYTES % (MANUAL) 17 % (19-48); MONOCYTES % (MANUAL) 4 % (3.4-9.0); NEUTROPHILS % (MANUAL) 76 % (40-74)
[2025-04-06 09:49] LABS: PLATELET ESTIMATE SLIGHTLY DECREASED; PLATELET MORPHOLOGY COMMENT FEW LARGE; RBC MORPHOLOGY COMMENT NORMAL
[2025-04-06 10:29] VITALS: BP 109/85; PULSE 92; RESP 20; TEMP 97; O2SAT 95
[2025-04-06 12:23] VITALS: BP 91/57; PULSE 76; RESP 20; TEMP 98.5; O2SAT 97
[2025-04-06 16:11] VITALS: BP 100/80; PULSE 96; RESP 19; TEMP 97.5; O2SAT 98
== END 2025-04-06 17:44 | DRG 291 ==
LOC: ER 11:54 → ERHOLD 13:31 → IMCU 21:15 → ICU 04-01 11:08 → MED/SURG3 04-04 15:16
PROVIDERS: ADMIT Family Medicine; ATTEND Family Medicine
PROC: 05HY33Z Insertion of Infusion Device into Upper Vein, Percutaneous Approach (ICD-10-PCS; principal; 2025-04-01)
DX: I13.0 Hypertensive heart and chronic kidney disease with heart failure and stage 1 through stage 4 chronic kidney disease, or unspecified chronic kidney disease (principal); I50.23 Acute on chronic systolic (congestive) heart failure; R57.0 Cardiogenic shock; L03.116 Cellulitis of left lower limb; N17.9 Acute kidney failure, unspecified; L03.115 Cellulitis of right lower limb; E87.20 Acidosis, unspecified; F03.90 Unspecified dementia, unspecified severity, without behavioral disturbance, psychotic disturbance, mood disturbance, and anxiety; J44.9 Chronic obstructive pulmonary disease, unspecified; R09.02 Hypoxemia; I95.9 Hypotension, unspecified; I73.9 Peripheral vascular disease, unspecified; Z66 Do not resuscitate; I42.0 Dilated cardiomyopathy; I25.5 Ischemic cardiomyopathy; I35.0 Nonrheumatic aortic (valve) stenosis; N18.9 Chronic kidney disease, unspecified; I48.0 Paroxysmal atrial fibrillation; F09 Unspecified mental disorder due to known physiological condition; D64.9 Anemia, unspecified; Z87.442 Personal history of urinary calculi; Z91.81 History of falling; Z86.718 Personal history of other venous thrombosis and embolism; Z79.01 Long term (current) use of anticoagulants; Z88.0 Allergy status to penicillin; Z87.440 Personal history of urinary (tract) infections; Z11.52 Encounter for screening for COVID-19
CPT/HCPCS: 36415; 36569; 70450; 71045; 80048; 80053; 81001; 83605; 83735; 85025; 85610; 85730; 87040; 87086; 93005; 94799; 99252; 99285; J1160; J2185; J3373; J7030; J7050